=== PATIENT | male | born 1960 | race African-American/Black ===

== ENCOUNTER 2016-06-20 19:36 | Emergency (ER) | payer OTHER ==
[~2016-06-20] VITALS: Ht 188 cm; Wt 100.0 kg
[2016-06-20] MEDS ORDERED: TETRACAINE 0.5% OPHTH DROPS 4ML OP ONE (21:30)
[2016-06-20] MEDS ORDERED: FLUORESCEIN SODIUM 1MG/STRIP OP ONE (21:30)
[2016-06-20] MEDS ORDERED: KETOROLAC 60MG/2ML VIAL IM ONE (21:30)
[2016-06-20 23:20] VITALS: BP 117/71
== END 2016-06-21 00:25 | disposition home or self-care (01) ==
LOC: ER 19:37
DX: S00.11XA Contusion of right eyelid and periocular area, initial encounter (principal); F12.10 Cannabis abuse, uncomplicated; F17.200 Nicotine dependence, unspecified, uncomplicated; Y08.89XA Assault by other specified means, initial encounter; Y93.89 Activity, other specified; Y99.8 Other external cause status; Y92.89 Other specified places as the place of occurrence of the external cause
CPT/HCPCS: 70486; 96372; 99284; J1885; Z7610

== ENCOUNTER 2020-05-06 01:14 | Emergency (ER) | payer MEDICAID, OTHER ==
[~2020-05-06] VITALS: Ht 188 cm; Wt 86.0 kg
[2020-05-06] MEDS ORDERED: TETANUS, DIPHTHERIA, PERTUSSIS VAC/PF 0.5ML (>7YR OLD) IM ONE (01:45)
[2020-05-06] MEDS ORDERED: LIDOCAINE HCL/PF 1% 10 MG/ML 5ML VIAL IJ ONE (01:45)
[2020-05-06] MEDS ORDERED: IBUPROFEN 600MG TABLET PO ONE (01:45)
[2020-05-06] MEDS ORDERED: BACITRACIN ZINC OINT UDPKT TOP ONE (01:45)
[2020-05-06 02:12] VITALS: BP 161/106
[2020-05-06] MEDS ORDERED: IBUP-2029 PO (02:52)
== END 2020-05-06 03:04 | disposition home or self-care (01) ==
LOC: ER 01:17
DX: S01.312A Laceration without foreign body of left ear, initial encounter (principal); S00.83XA Contusion of other part of head, initial encounter; F12.10 Cannabis abuse, uncomplicated; Y08.89XA Assault by other specified means, initial encounter; Y93.89 Activity, other specified; Y92.512 Supermarket, store or market as the place of occurrence of the external cause
CPT/HCPCS: 12013; 90471; 90715; 99283; J3490; Z7610

== ENCOUNTER 2021-05-07 11:25 | Emergency (ER) | payer MEDICAID, OTHER ==
[~2021-05-07] VITALS: Ht 188 cm; Wt 100.0 kg
[~2021-05-07 11:25] MED LIST: IBUP-2029 PO
[2021-05-07 13:01] LABS: HEMATOCRIT. 46.9 % (42.0-52.0); HEMOGLOBIN. 16.2 g/dL (14.0-18.0); MEAN CORPUSCULAR HEMOGLOBIN 28.3 pg (28.0-32.0); MEAN PLATELET VOLUME 8.4 fl (7.4-10.4); PLATELET 122 x1000/uL (130-400); RED BLOOD CELL COUNT 5.72 mill/uL (4.7-6.1); RED CELL DISTRIBUTION WIDTH 13.4 % (11.6-14.6)
[2021-05-07 13:09] LABS: CHLORIDE 94 mEq/L (98-107)
[2021-05-07 13:13] LABS: ETHANOL BLOOD < 10 mg/dL
[2021-05-07 13:51] LABS: PLATELET ESTIMATE SLIGHTLY DECREASED
[2021-05-07] MEDS ORDERED: VANCOMYCIN 1G PREMIX 200 ML IV NR (15:00)
[2021-05-07] MEDS ORDERED: SODIUM CHLORIDE 0.9% 1000ML BAG (SEPSIS BOLUS) IV NR (15:00)
[2021-05-07] MEDS ORDERED: PIPERACILLIN/TAZ 3.375G PREMIX 50 ML IV ONE (15:00)
[2021-05-07] MEDS ORDERED: PIPERACILLIN/TAZ 3.375G PREMIX 50 ML IV NR (15:15)
[2021-05-07 15:33] LABS: INR 1.1; PROTHROMBIN TIME 11.4 sec (9.6-11.0)
[2021-05-07 15:44] LABS: CLARITY URINE CLOUDY (CLEAR); COLOR URINE DARK YELLOW (YELLOW); KETONES URINE 1+ (NEGATIVE); LEUKOCYTE ESTERASE URINE NEGATIVE (NEGATIVE); NITRITE URINE NEGATIVE (NEGATIVE); OCCULT BLOOD URINE 2+ (NEGATIVE); PH URINE 5.5 (4.5-8.0); PROTEIN URINE 3+ (NEGATIVE); SPECIFIC GRAVITY URINE 1.033 (1.005-1.030)
[2021-05-07] MEDS ORDERED: ACETAMINOPHEN 325MG TABLET PO ONE (15:45)
[2021-05-07 16:02] LABS: *AMPHETAMINES SCREEN URINE NEGATIVE (NEGATIVE); *BARBITURATES SCREEN URINE NEGATIVE (NEGATIVE)
[2021-05-07 16:03] LABS: *BENZODIAZEPINES SCREEN URINE NEGATIVE (NEGATIVE); *COCAINE SCREEN URINE NEGATIVE (NEGATIVE); CANNABINOID URINE SCREEN PRESUMTIVE POSITIVE (NEGATIVE); METHADONE URINE SCREEN NEGATIVE (NEGATIVE); OPIATES URINE SCREEN NEGATIVE (NEGATIVE); PHENCYCLIDINE URINE SCREEN NEGATIVE (NEGATIVE)
[2021-05-07 16:04] LABS: CREATINE KINASE 288 IU/L (39-308)
[2021-05-07] MEDS ORDERED: LIDOCAINE HCL/PF 1% 10 MG/ML 5ML VIAL INFIL ONE (16:45)
[2021-05-07] MEDS ORDERED: LIDOCAINE HCL 1% 20ML VIAL (Pyxis) INJ INFIL NR (17:15)
[2021-05-07 19:06] LABS: GLUCOSE CSF 61 mg/dL (41-75)
[2021-05-07] MEDS ORDERED: ACYCLOVIR INJ 750 MG in DEXT 5% WATER 125 ML IV SCH (20:00)
[2021-05-07 23:30] VITALS: BP 140/80
== END 2021-05-07 22:36 | disposition short-term general hospital (02) ==
LOC: ER 11:57 → CANBEDREQ 05-09 21:07
DX: A41.9 Sepsis, unspecified organism (principal); G03.9 Meningitis, unspecified; I10 Essential (primary) hypertension; Z20.822 Contact with and (suspected) exposure to COVID-19
CPT/HCPCS: 36415; 70450; 71045; 80053; 80305; 80320; 81003; 82550; 82728; 82945; 83605; 83690; 84145; 84157; 84484; 85025; 85610; 86140; 87040; 87070; 87086; 87205; 87426; 87804; 89050; 93005; 96365; 96368; 99291; J0133; J2543; J3370; J3490; J7060; G0480

== ENCOUNTER 2021-05-18 01:24 | Emergency (ER) | payer OTHER ==
[~2021-05-18] VITALS: Ht 177.8 cm; Wt 96.0 kg
[2021-05-18] MEDS ORDERED: MORPHINE SULFATE 4 MG/ML CPJ (NOT FOR IM USE) IV STA (02:53)
[2021-05-18] MEDS ORDERED: ONDANSETRON HCL 4MG/2ML INJ IV STA (02:53)
[2021-05-18] MEDS ORDERED: SODIUM CHLORIDE 0.9% 1,000 ML IV ONE (03:00)
[2021-05-18 03:52] LABS: BASOPHILS % 0.3 % (0.0-2.0); EOSINOPHILS % 1.1 % (0.0-5.0); HEMATOCRIT. 39.4 % (42.0-52.0); HEMOGLOBIN. 13.4 g/dL (14.0-18.0); LYMPHOCYTES % 20.1 % (20.0-50.0); MEAN CORPUSCULAR HEMOGLOBIN 28.7 pg (28.0-32.0); MEAN CORPUSCULAR VOLUME 84.5 fL (80.0-94.0); MEAN PLATELET VOLUME 8.5 fl (7.4-10.4); MONOCYTES % 14.4 % (2.0-8.0); NEUTROPHILS % 64.1 % (40.0-76.0); PLATELET 426 x1000/uL (130-400); RED BLOOD CELL COUNT 4.66 mill/uL (4.7-6.1); RED CELL DISTRIBUTION WIDTH 14.2 % (11.6-14.6)
[2021-05-18 04:04] LABS: CHLORIDE 98 mEq/L (98-107)
[2021-05-18 04:29] LABS: CLARITY URINE CLEAR (CLEAR); COLOR URINE YELLOW (YELLOW); KETONES URINE TRACE (NEGATIVE); LEUKOCYTE ESTERASE URINE NEGATIVE (NEGATIVE); NITRITE URINE NEGATIVE (NEGATIVE); OCCULT BLOOD URINE NEGATIVE (NEGATIVE); PROTEIN URINE NEGATIVE (NEGATIVE); SPECIFIC GRAVITY URINE 1.012 (1.005-1.030); UROBILINOGEN URINE 0.2 E.U./dL (0.2-1.0)
[2021-05-18] MEDS ORDERED: TOPUD PO (07:23)
[2021-05-18 09:11] VITALS: BP 127/83
== END 2021-05-18 09:00 | disposition home or self-care (01) ==
LOC: ER 01:24
DX: R10.31 Right lower quadrant pain (principal); R00.0 Tachycardia, unspecified; K57.30 Diverticulosis of large intestine without perforation or abscess without bleeding; K40.20 Bilateral inguinal hernia, without obstruction or gangrene, not specified as recurrent; I10 Essential (primary) hypertension; G03.9 Meningitis, unspecified; Z86.19 Personal history of other infectious and parasitic diseases
CPT/HCPCS: 36415; 71045; 74176; 80053; 81003; 83605; 83690; 85025; 93005; 96361; 96374; 96375; 99285; J2270; J2405

== ENCOUNTER 2021-06-26 06:22 | Emergency (ER) | payer OTHER ==
[~2021-06-26] VITALS: Ht 177.8 cm; Wt 77.0 kg
[~2021-06-26 06:22] MED LIST changes: +TOPUD PO
[2021-06-26] MEDS ORDERED: TETANUS, DIPHTHERIA, PERTUSSIS VAC/PF 0.5ML (>10YR OLD) IM ONE (06:45)
[2021-06-26] MEDS ORDERED: IBUPROFEN 600MG TABLET PO ONE (06:45)
[2021-06-26] MEDS ORDERED: BACITRACIN ZINC OINT UDPKT TOP ONE (09:15)
[2021-06-26] MEDS ORDERED: IBUP-2029 MT (09:44)
[2021-06-26] MEDS ORDERED: AMOX-424 MT (09:44)
[2021-06-26 10:03] VITALS: BP 113/101
== END 2021-06-26 10:03 | disposition home or self-care (01) ==
LOC: ER 06:22
DX: S02.2XXA Fracture of nasal bones, initial encounter for closed fracture (principal); S02.85XA Fracture of orbit, unspecified, initial encounter for closed fracture; Y08.89XA Assault by other specified means, initial encounter; Y93.89 Activity, other specified; Y92.89 Other specified places as the place of occurrence of the external cause; Y99.8 Other external cause status; I10 Essential (primary) hypertension; Z79.899 Other long term (current) drug therapy
CPT/HCPCS: 12002; 12011; 90471; 90715; 99284

== ENCOUNTER 2023-05-12 00:45 | Emergency (ER) | payer OTHER ==
[~2023-05-12] VITALS: Ht 188 cm; Wt 100.0 kg
[~2023-05-12 00:45] MED LIST changes: +AMOX-424 MT; +IBUP-2029 MT
[2023-05-12 01:36] VITALS: BP 127/95; PULSE 74; RESP 17; TEMP 96.4; O2SAT 97
[2023-05-12] MEDS ORDERED: LIDOCAINE HCL/PF 1% 10 MG/ML 5ML VIAL INFIL ONE (02:15)
[2023-05-12] MEDS ORDERED: TETANUS, DIPHTHERIA, PERTUSSIS VAC/PF 0.5ML (>10YR OLD) IM ONE (02:15)
== END 2023-05-12 05:37 | disposition home or self-care (01) ==
LOC: ER 01:05
DX: S01.511A Laceration without foreign body of lip, initial encounter (principal); I10 Essential (primary) hypertension; Y04.0XXA Assault by unarmed brawl or fight, initial encounter; Y93.01 Activity, walking, marching and hiking; Y92.89 Other specified places as the place of occurrence of the external cause; Y99.8 Other external cause status
CPT/HCPCS: 12011; 99282